=== PATIENT | female | born 1965 | race Caucasian/White ===

== ENCOUNTER 2025-04-03 08:36 | Inpatient (IN) | payer BC ==
[2025-04-03 09:21] LABS: BASOPHILS ABSOLUTE AUTO 0.0 K/mm3 (0.0-0.2); BASOPHILS PERCENT AUTO 0.2 % (0.0-1.0); EOSINOPHILS ABSOLUTE AUTO 0.0 K/mm3 (0.0-0.4); EOSINOPHILS PERCENT AUTO 0.2 % (0.0-6.0); IMMATURE GRAN ABSOLUTE AUTO 0.05 K/mm3 (0.00-0.05); IMMATURE GRAN PERCENT AUTO 0.4 % (0.0-0.4); LYMPHOCYTES ABSOLUTE AUTO 1.4 K/mm3 (1.0-4.8); LYMPHOCYTES PERCENT AUTO 10.9 % (24.0-44.0); MEAN PLATELET VOLUME 10.9 fl (9.4-12.3); MONOCYTES ABSOLUTE AUTO 0.4 K/mm3 (0.0-0.8); MONOCYTES PERCENT AUTO 3.3 % (0.0-8.0); NEUTROPHILS ABSOLUTE AUTO 10.9 K/mm3 (1.8-7.7); NEUTROPHILS PERCENT AUTO 85.0 % (41.0-71.0); NRBC ABSOLUTE 0.00 (0.00-0.02); NRBC PERCENT 0.0 % (0.0-0.2); PLATELET COUNT,PLT 250 K/mm3 (150-400); RED BLOOD CELL COUNT 4.85 M/mm3 (4.10-5.30); WHITE BLOOD CELL COUNT,WBC 12.80 K/mm3 (3.9-11.3)
[2025-04-03 09:35] LABS: A/G RATIO 1.1 (1-2); ALANINE AMINOTRANSFERASE,ALT 32.0 U/L (14-59); ASPARTATE AMNIOTRANSFERASE,AST 22.0 U/L (15-37); BILIRUBIN TOTAL 0.6 mg/dL (0.2-1.0); BLOOD UREA NITROGEN,BUN 14.0 mg/dL (7-18); CARBON DIOXIDE,CO2 30.0 mEq/L (21-32); CHLORIDE,CL 95.0 mEq/L (98-107); CREATININE 0.8 mg/dL (0.55-1.02); EST CRCL DRUG DOSING (CG) 60.31 mL/min; ESTIMATED GFR 83.0 mL/min (>60); GLUCOSE RANDOM 163.0 mg/dL (70-99); PROTEIN TOTAL,TP 7.1 g/dl (6.4-8.2); SODIUM,NA 135.0 mEq/L (136-145); TROPONIN I HIGH SENSITIVITY 10.0 pg/mL (<=51)
[2025-04-03 09:44] LABS: POTASSIUM,K 2.4 mEq/L (3.5-5.1)
[2025-04-03] MEDS: Potassium Chloride 20 MEQ Tab.ER PO ONE (10:12)
[2025-04-03] MEDS: Alum Hydrox/Mag Hydrox/Simeth 30 ML, Lidocaine 2% 15 ML PO ONE (10:13)
[2025-04-03] MEDS: Sodium Chloride 0.9% 10 ML Syringe FLUSH PRN (10:13)
[2025-04-03] MEDS: Magnesium Sulf/Wat 4 GM/50 mL 4 GM in Premix Bag 1 BAG IV ONE (13:49)
[2025-04-03] MEDS ORDERED: Ondansetron 4 MG Tab.DIS PO PRN (14:31)
[2025-04-03 14:51] LABS: CHOLESTEROL HDL 52 mg/dL (40-59); CHOLESTEROL LDL DIRECT 104 mg/dL (<100); CHOLESTEROL TOTAL 169 mg/dL (<200)
[2025-04-03] MEDS: NS + KCl 20mEq/L 1,000 ML IV SCH (15:24)
[2025-04-03] MEDS: Potassium Chloride 20 MEQ Tab.ER PO SCH (16:40)
[2025-04-03 19:34] LABS: TSH 0.976 uIU/mL (0.358-3.74)
[2025-04-04 06:29] LABS: BLOOD UREA NITROGEN,BUN 12.0 mg/dL (7-18); CARBON DIOXIDE,CO2 30.0 mEq/L (21-32); CHLORIDE,CL 106.0 mEq/L (98-107); CREATININE 0.6 mg/dL (0.55-1.02); EST CRCL DRUG DOSING (CG) 80.42 mL/min; ESTIMATED GFR 101.0 mL/min (>60); GLUCOSE RANDOM 96.0 mg/dL (70-99); POTASSIUM,K 3.9 mEq/L (3.5-5.1); SODIUM,NA 141.0 mEq/L (136-145)
[2025-04-04] MEDS: Magnesium Sulf/Wat 4 GM/50 mL 4 GM in Premix Bag 1 BAG IV ONE (09:36)
== END 2025-04-04 16:08 | disposition home or self-care (01) | DRG 425 ==
LOC: JD.ED 08:36 → JD.MS 14:06
PROVIDERS: ADMIT Family Medicine; ATTEND Family Medicine
DX: E87.6 Hypokalemia (principal); E83.42 Hypomagnesemia; E87.1 Hypo-osmolality and hyponatremia; F41.9 Anxiety disorder, unspecified; F32.A Depression, unspecified; R73.9 Hyperglycemia, unspecified; E87.8 Other disorders of electrolyte and fluid balance, not elsewhere classified; R07.9 Chest pain, unspecified; Z79.899 Other long term (current) drug therapy; Z87.891 Personal history of nicotine dependence
CPT/HCPCS: 36415; 71045; 71045-26; 78452; 78452-26; 80048; 80053; 80061; 83036; 83690; 83735; 84132; 84443; 84484; 85025; 93005; 93010; 93017; 93306; 99285; A9270-GY; A9500; J1650; J3475; J3480; J7030